=== PATIENT | female | born 1995 | race Two or more races ===

== ENCOUNTER 2021-07-30 23:18 | Emergency (ER) | payer OTHER ==
[~2021-07-30] VITALS: Ht 175.3 cm; Wt 172.4 kg
[2021-07-31 02:01] VITALS: BP 115/62
== END 2021-07-31 04:51 | disposition home or self-care (01) ==
LOC: ER 23:22
DX: T19.2XXA Foreign body in vulva and vagina, initial encounter (principal); X58.XXXA Exposure to other specified factors, initial encounter; Y93.9 Activity, unspecified; Y92.9 Unspecified place or not applicable; Y99.9 Unspecified external cause status